=== PATIENT | male | born 2005 | race Caucasian/White ===

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

== ENCOUNTER 2023-02-01 13:35 | Emergency (ER) | payer OTHER, MEDICAID, SELFPAY ==
[2023-02-01 13:41] VITALS: BP 130/63; PULSE 86; RESP 20; TEMP 36.6; O2SAT 98
[2023-02-01 13:44] VITALS: BP 130/63; PULSE 86; RESP 20; TEMP 36.6; O2SAT 98
--- NOTE | 2023-02-01 13:50 | ED.GENADULT ---
HPI - General Adult General Chief complaint: Wound/Laceration Stated complaint: L finger laceration Time Seen by Provider: 02/01/23 13:45 History of Present Illness HPI narrative: The patient is a 17-year-old male who was cutting zip ties with a knife when the knife slipped and he cut his left index finger on the radial aspect. No sensory or motor deficits. Small laceration noted. No other lacerations. No other complaints. Immunizations up-to-date including tetanus. Related Data Home Medications Medication Instructions Recorded Confirmed No Home Medications 02/01/23 02/01/23 Allergies Allergy/AdvReac Type Severity Reaction Status Date / Time No Known Allergies Allergy Verified 02/01/23 13:44 Review of Systems Review of Systems: All systems reviewed & are unremarkable except as noted in HPI and below Constitutional: Constitutional: Denies chills, Denies excessive sweating, Denies fatigue, Denies fever(s), Denies headache(s) and Denies weakness Eyes: Eyes: Denies change in vision and Denies photophobia ENT: Denies dysphagia, Denies dizziness, Denies headache(s), Denies lip swelling, Denies nasal congestion, Denies sore throat and Denies tongue swelling Cardiovascular: Cardiovascular: Denies chest pain, Denies syncope, Denies rapid heart rate and Denies dyspnea Respiratory: Respiratory: Denies cough, Denies dyspnea and Denies wheezing Gastrointestinal: Gastrointestinal: Denies abdominal pain, Denies constipation, Denies dysphagia, Denies diarrhea, Denies nausea and Denies vomiting Genitourinary: Genitourinary: Denies hematuria, Denies dysuria, Denies urinary frequency and Denies urinary urgency Musculoskeletal: Musculoskeletal: Denies back pain, Denies myalgias, Denies arthralgias, Denies joint swelling and Denies numbness Integumentary/Breasts: Skin/Breast: Denies pruritus, Denies erythema and Denies rash Neurologic: Denies confusion, Denies dizziness, Denies syncope, Denies headache(s), Denies focal weakness, Denies numbness and Denies weakness Psychiatric: Psychiatric: Denies anxiety and Denies confusion Endocrine: Endocrine: Denies excessive sweating and Denies fatigue Hematologic/Lymphatic: Hematologic/Lymphatic: Denies easy bleeding and Denies easy bruising Allergic/Immunologic: Allergic/Immunologic: Denies lip swelling, Denies tongue swelling and Denies wheezing Exam Const: General: healthy appearing, no acute distress, alert and well nourished Nutritional Appearance: well nourished Orientation/consciousness: patient oriented x3 Limitations: no limitations HENMT: Head: normal to inspection Ears: external ears normal Face/Nose/Sinus: normal facial exam Face and sinus: normal facial exam Mouth: Yes moist mucous membranes Throat: posterior oropharynx normal Eyes: Conjunctivae: conjunctivae normal Pupils: Equal, round and reactive pupils present EOM: EOMs intact bilaterally Neck: Neck: normal visual inspection and no meningeal signs Chest: Chest palpation & inspection: normal inspection of the chest and no tenderness Resp: Effort & Inspection: normal respiratory effort and not labored Auscultation: clear to auscultation bilaterally, no crackles, no rhonchi and no wheezes Cardio: Rate: regular rate Rhythm: regular rhythm Heart sounds: no murmurs GI: Inspection: non-distended GI Palp: Yes Soft to palpation, No Tenderness to palpation present (GI), No Guarding due to palpation present (GI) and No Rebound tenderness present : General: Yes no CVA tenderness Back/Spine/Pelvis: Back: no CVA tenderness Cervical Spine: No Cervical spine tenderness Thoracic/Lumbar Spine: No thoracic spinal tenderness Skin: General skin exam: normal color Rashes: no rashes Wounds: wounds noted (4 mm stab wound at the left index finger radial aspect) Neuro: General: patient oriented x3, moves all extremities, no meningeal signs, no focal motor deficits and CN's II-XI intact bilaterally Cranial nerves: Yes
[2023-02-01 14:24] VITALS: BP 130/63; PULSE 86; RESP 20; TEMP 36.6; O2SAT 98
== END 2023-02-01 14:23 | disposition home or self-care (01) ==
PROVIDERS: Emergency Provider Emergency Medicine; PCP Family Medicine
DX: S61.211A Laceration without foreign body of left index finger without damage to nail, initial encounter (principal); W26.0XXA Contact with knife, initial encounter
CPT/HCPCS: 12001; 99282

== ENCOUNTER 2023-08-20 10:09 | Outpatient (CLI) | payer OTHER, SELFPAY ==
--- NOTE | ~2023-08-20 | XR_ITS ---
AP view of the pelvis and AP and lateral views of the right hip Clinical history: Pain Findings: No acute fracture or dislocation is seen. Osseous alignment is anatomic. Bilateral hip and SI joint spaces are preserved. Soft tissues are unremarkable. Impression: No significant abnormality is seen. Reviewed, dictated and finalized at [facility]. ULAR TECHNOLOGIST SONOGRAPHER Impression: No significant abnormality is seen.
== END 2023-08-20 10:10 | disposition home or self-care (01) ==
PROVIDERS: PCP Family Medicine; Visit Provider Family Medicine
DX: M25.551 Pain in right hip (principal)
CPT/HCPCS: 72170; 73502

== ENCOUNTER 2024-05-05 12:39 | Outpatient (CLI) | payer OTHER, MEDICAID, SELFPAY ==
--- NOTE | ~2024-05-05 | XR_ITS ---
XR ankle LT min 3V Ordering provider: Manuel Francois MD History: . anterior ankle pain x4days, no known inj, swelling, redness . Comparison: None. FINDINGS: BONES: No acute fracture or dislocation. JOINT SPACES: The ankle mortise is normal. SOFT TISSUES: Normal. IMPRESSION: No acute osseous abnormality left ankle. Reviewed, dictated and finalized at location A.
[2024-05-05 12:57] LABS: Eosinophils Absolute Auto 0.63 K/mm3 (0.02-0.50); Eosinophils Percent Auto 6.2 % (1.0-6.0); Hematocrit 42.8 % (40.0-54.0); Hemoglobin 14.8 g/dL (14.0-18.0); Immature Granulocyte Absolute 0.03 K/mm3 (0.00-0.00); Immature Granulocyte Percent A 0.3 % (0.0-0.0); Lymphocytes Absolute Auto 3.98 K/mm3 (1.10-4.50); Lymphocytes Percent Auto 39.4 % (18.0-42.0); Mean Corpuscular HGB Conc 34.6 g/dL (32-36); Mean Corpuscular Hemoglobin 28.9 pg (27.0-31.0); Mean Corpuscular Volume 83.6 fL (78.0-102.0); Mean Platelet Volume 9.7 fl (8.7-11.0); Monocytes Absolute Auto 0.75 K/mm3 (0.10-0.90); Monocytes Percent Auto 7.4 % (2.0-11.0); Neutrophils Absolute Auto 4.62 K/mm3 (1.70-7.20); Neutrophils Percent Auto 45.7 % (50.0-70.0); Platelet Count Result 304 K/mm3 (150-420); Red Blood Count 5.12 M/mm3 (4.70-6.10); Red Cell Distribution Width 12.3 % (11.6-14.4); White Blood Count 10.1 K/mm3 (4.8-10.8)
[2024-05-05 13:56] LABS: Anion Gap 6 mmol/L (4-12); Blood Urea Nitrogen 12 mg/dL (7-18); Calcium 9.4 mg/dL (8.5-10.1); Carbon Dioxide 30 mmol/L (21-32); Chloride 103 mmol/L (98-108); Estimated Glomerular Filt Rate > 60; Glucose 89 mg/dL (70-99); Osmolality Calculated 286 mOsm/kg (285-295); Potassium 3.9 mmol/L (3.5-5.1); Sodium 139 mmol/L (136-145); Uric Acid 6.3 mg/dL (3.5-7.2)
== END 2024-05-05 12:40 | disposition home or self-care (01) ==
LOC: CHSLAB 12:40
PROVIDERS: PCP Family Medicine; Visit Provider Family Medicine
DX: M25.572 Pain in left ankle and joints of left foot (principal)
CPT/HCPCS: 36415; 73610; 80048; 84550; 85025

== ENCOUNTER 2025-01-14 12:31 | Emergency (ER) | payer OTHER, SELFPAY ==
--- NOTE | ~2025-01-14 | CT_ITS ---
EXAMINATION: CT brain wo con DATE: 01/14/2025 12:56 INDICATION: Head injury with right-sided headache, nausea, dizziness and blurred vision TECHNIQUE: Computed tomography (CT) of the head was performed without intravenous contrast. Sagittal and coronal reconstructions were performed. Automated exposure control and iterative reconstruction t echnique were employed. The dose-length product was 605.33 mGy-cm. COMPARISON: None FINDINGS: No fracture. No acute intracranial hemorrhage, acute infarction or abnormal extra axial fluid collect ion. Ventricles are normal and symmetric. No mass/mass effect. There are mucous retention cysts in th e bilateral maxillary sinuses. The orbits and mastoid air cells are normal. IMPRESSION: 1. Normal brain. No fracture or acute intracranial process. Reviewed, dictated and finalized at location A.
[2025-01-14 12:32] VITALS: BP 124/78; PULSE 91; RESP 16; TEMP 37.4
--- OUTSIDE RECORDS SUMMARY | 2025-01-14 12:33 | XMS_ITS | Clinical Summary ---
Author Organization [email or web address] Address [address] [place] [address] Care Team Providers Care Woolen Tester Name Role Phone Manuel Francois MD Primary Care Provider [phone] Source Comments [email or web address],non-owned Affiliates and Associated Physician Practices is amultiple site organization consisting of ambulatory clinics and hospital sitesin [place], [place], [place] and [place]. This disclosure is being madepursuant to the Care Everywhere program and may not contain all information available regarding this patient. Last updated 18.[email or web address] Allergies No known active allergies Medications * Be aware that medications may not be up to date on this document. Alwaysverify current medications with the patient. 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 Gender Identity Not on file Sexual Orientation Not on file Last Filed Vital Signs Vital Sign Reading Time Taken Comments Blood Pressure - - Pulse - - Temperature - - Respiratory Rate - - Oxygen Saturation - - Inhaled Oxygen Concentration - - Weight 81.5 kg (179 lb 10.8 oz) 12/27/2018 9:48 AM CDT Height 185.4 cm (6' 1 ) 12/27/2018 9:48 AM CDT Body Mass Index 23.71 12/27/2018 9:48 AM CDT Plan of Treatment Health Maintenance Due Date Last Done Comments HIV SCREENING 12/28/2018 HPV VACCINE (1 - Male 3-dose series) 12/28/2018 MENINGOCOCCAL (Group B) VACC INE SHARED DECISION-MAKING (1 of 2 - Standard) 2019 HEPATITIS C SCREENING 12/24/2021 DTAP/TDAP/TD VACCINES (1 - Tdap) 12/28/2022 HEPATITIS B VACCINE (1 of 3 - 19+ 3-dose series) 12/28/2022 COVID-19 VACCINE (1 - 2023-2 5 season) 2024 DEPRESSION SCREENING 09/21/2024 INFLUENZA VACCINE (Season Ended) 2025 ZOSTER VACCINE (1 of 2) 12/28/2053 HIB VACCINE Aged Out No longer eligi ble based on patient's age to complete this topic MENINGOCOCCAL GROUPS A/C/Y/W VACCINE Aged Out No longer eligible b ased on patient's age to complete this topic PNEUMOCOCCAL VACCINE Aged Out No long er eligible based on patient's age to complete this topic Insurance [facility] MEDICA[facility] - OUT OF STATE Care Teams Woolen Tester Relationship Specialty Start Date End Date Manuel Francois MD [address] [place] [address] PCP - General Family Medicine 12/27/18
--- OUTSIDE RECORDS SUMMARY | 2025-01-14 12:33 | XMS_ITS | Clinical Summary ---
Author Organization [facility] [address] [facility] lto Address [address] [place] [address] Care Team Providers Care Lead Fabricator Name Role Phone Manuel Francois MD Primary Care Provide r Allergies No known active allergies Medications No known medications Active Problems No known active problems Social History Tobacco Use Types Packs/Day Years Used Date Smoking Tobacco: Never Tobacco Cessation:Counseling Given: Not Answered Personal Safety Answer Date Recorded Getting School Help Needed Not on file 12/05 Sex and Gender Information Value Date Recorded Sex Assigned at Not on file Legal Sex Male 10:35 AM CDT Gender Identity Not on file Sexual Orientation Not on file Obstetrics History Last Filed Vital Signs Vital Sign Reading Time Taken Comments Blood Pressure 128/72 06/22/2022 11:09 AM CDT Pulse 103 06/22/2022 11:09 AM CDT Temperature 36.9 C (98.5 F) 06/22/2022 11:09 AM CDT Respiratory Rate 20 06/22/2022 11:0 9 AM CDT Oxygen Saturation 97% 06/22/2022 11: 09 AM CDT Inhaled Oxygen Concentration - - Weight 112.6 kg (248 lb 3.2 oz) 022 11:09 AM CDT Height 193.7 cm (6' 4.25 ) 06/22/2022 1 1:09 AM CDT Body Mass Index 30.01 06/22/2022 11:09 AM CDT Plan of Treatment Health Maintenance Due Date Last Done Comments Depression Screening 2003 Hepatitis C Screening 2003 Meningococcal B Vaccine (1 o f 2 - Standard) 2019 Regular Well Visit/Exam 18-64 12/28/2021 Influenza Vaccine (#1) 2024 7, 07/12/2013, 07/30/2012, Additional history exists DTaP/Tdap/Td Vaccine (7 - Td or Tdap) 03/09/2025 03/09/2015, 11/23/2008, 04/24/2005, Additional history exists Hepatitis B Screening Completed 08/08/2004 , 05/02/2004, 02/29/2004 Pneumococcal vaccine <65 Completed 005, 08/08/2004, 05/02/2004, Additional history exists Varicella Vaccines Completed 11/23/2008, 01/09/2005 HPV Vaccines Completed 04/08/2017, 03/22, 03/09/2015 Meningococcal Vaccine Completed 03/09/2020, 015 Insurance [employer] Address: [facility] [address] [place] [address] IDPA [employer] Address: [facility] [address] [place] [address] [place]PA Care Teams Lead Fabricator Relationship Specialty Start Date End Date Manuel Francois MD [address] [place], [place] [id number] PCP - General Family Medicine 06/22/22
--- OUTSIDE RECORDS SUMMARY | 2025-01-14 12:33 | XMS_ITS | Referral Summary ---
Author Organization [facility] [address] [facility] lto Address [address] [facility] [place] [address] Care Team Providers Care Certified Technician Name Role Phone Manuel Francois MD Primary [...] 06/22/2022 11:09 AM CDT Plan of Treatment Not on file Insurance [employer] [facility] [facility] [employer] Address: [facility] [address] [place] [address] IDLA [employer] [employer] Address: [facility] [address] [place] [address] [place]LA Care Teams Certified Technician Relationship Specialty Start Date End Date Manuel Francois MD [address] [place] [address] PCP - General Family Medicine 06/22/22
--- NOTE | 2025-01-14 12:48 | ED_ITS ---
HPI - Head Injury General Chief complaint: Head Injury Stated complaint: hit head on forklift Time Seen by Provider: 01/14/25 12:38 Source: patient and family Mode of arrival: ambulatory Limitations: no limitations History of Present Illness HPI Narrative: this is a 19-year-old male that hit his head on the beam of a forklift earlier this morning causing headache and some nausea currently no nausea or vomiting t here was no loss of consciousness no blurry vision no neurological deficits. Patient did take some Tylenol prior to arrival. Complaint: head injury Onset (ago): hour(s) Mechanism of Injury: work related injury Place: work Loss of Consciousness: no Location of injury: parietal Severity: moderate Severity scale (1-10): 4 Related Data Home Medications ?Medication ?Instructions ?Recorded ?Confirmed ?Last Taken ?Type No Home Medications 02/01/23 02/01/23 Unknown History Allergies Allergy/AdvReac Type Severity Reaction Status Date / Time No Known Allergies Allergy Verified 02/01/23 13:44 Review of Systems Review of Systems: All systems reviewed & are unremarkable except as noted in HPI and below PMFSH Past Medical History Medical History Patient denies medical problems Exam Const: General: healthy appearing and no acute distress Nutritional Appearance: well nourished Orientation/consciousness: patient oriented x3 Limitations: no limitations HENMT: Head: normal to inspection Eyes: Conjunctivae: conjunctivae normal Pupils: Equal, round and reactive pupils present EOM: EOMs intact bilaterally Direct Ophthalmoscopy: no photophobia Neck: Neck: normal visual inspection Chest: Chest palpation & inspection: normal inspection of the chest Resp: Effort & Inspection: normal respiratory effort Auscultation: clear to auscultation bilaterally Cardio: Rate: regular rate Rhythm: regular rhythm GI: GI Palp: Yes Soft to palpation Auscultation: normal bowel sounds Neuro: General: patient oriented x3, moves all extremities, no meningeal signs and no focal motor deficits Cranial nerves: Yes CN's II-XII intact bilaterally Speech: normal speech Gait exam (Neuro): Normal gait present Extrem: General: normal to inspection Course Course Emergency Course: patient took Tylenol prior to arrival pain level is under control currently no nausea vomiting, CT scan performed of the brain shows no acute intracranial abnormalities. Vital Signs Vital signs: Vital Signs Temperature 37.4 C 01/14/25 12:32 Pulse Rate 91 01/14/25 12:32 Respiratory Rate 16 01/14/25 12:32 Blood Pressure 124/78 01/14/25 12:32 Temperature 37.4 C 01/14/25 12:32 Pulse Rate 91 01/14/25 12:32 Respiratory Rate 16 01/14/25 12:32 Blood Pressure 124/78 01/14/25 12:32 Critical Care Time Critical Care Time Critical Care Time: No Discharge Plan Discharge Clinical Impression: Closed head injury Qualifiers: Encounter type: initial encounter Qualified Code(s): S09.90XA - Unspecified injury of head, initial encounter Concussion Qualifiers: Encounter type: initial encounter Loss of consciousness presence/duration: without LOC Qualified Code(s): S06.0X0A - Concussion without loss of consciousness, initial encounter Patient Disposition: Home Condition: Stable Instructions: Antibiotic Form, Concussion (ED), Head Injury (ED) Additional Instructions: advised take Tylenol or Motrin as needed refrain from heavy activity and refrain from electronics for approximately 1 week and follow with primary if sym ptoms persist or worsen. Patient Language: Kyrgyz Prescriptions: No Action No Home Medications Follow-up/Referrals: Manuel Francois MD [Primary Care Provider] -
--- OUTSIDE RECORDS SUMMARY | 2025-01-14 13:06 | XMS_ITS | Clinical Summary ---
Author Organization [facility] [address] [facility] lto Address [address] [place] [address] Care Team Providers Care Blocking Machine Operator Second Name Role Phone Manuel Francois MD Primary [...] Meningococcal Vaccine Completed 03/09/2020, 015 Insurance [employer] Address: [facility] [address] [place] [address] IDPA [employer] Address: [facility] [address] [place] [address] [place]PA Care Teams Blocking Machine Operator Second Relationship Specialty Start Date End Date Manuel Francois MD [address] [place], [place] [id number] PCP - General Family Medicine 06/22/22
--- OUTSIDE RECORDS SUMMARY | 2025-01-14 13:06 | XMS_ITS | Referral Summary ---
Author Organization [facility] [address] [facility] lto Address [address] [place] [address] Care Team Providers Care Auger Supervisor Name Role Phone Manuel Francois MD Primary [...] of Treatment Not on file Insurance [employer] [facility] [employer] Address: [facility] [address] [place] [address] IDMI [employer] [facility] [employer] Address: [facility] [address] [place] [address] IDMI Care Teams Auger Supervisor Relationship Specialty Start Date End Date Manuel Francois MD [address] [place] [address] PCP - General Family Medicine 06/22/22
--- OUTSIDE RECORDS SUMMARY | 2025-01-14 13:06 | XMS_ITS | Clinical Summary ---
Author Organization [facility] Address [address] [place] [address] Care Team Providers Care Scientist Propagator Name Role Phone Manuel Francois MD Primary Care Provider [phone] [facility],non-owned Affiliates and Associated Physician Practices is amultiple site organization consisting of ambulatory clinics and hospital sitesin [place], [place], [place] and [place]. This disclosure is being madepursuant to the Care Everywhere program and may not contain all information available regarding this patient. Last updated 18.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
== END 2025-01-14 13:24 | disposition home or self-care (01) ==
LOC: CHSED 13:04
PROVIDERS: Emergency Provider Emergency Medicine; PCP Family Medicine
DX: S06.0X0A Concussion without loss of consciousness, initial encounter (principal); W22.8XXA Striking against or struck by other objects, initial encounter; Y99.0 Civilian activity done for income or pay
CPT/HCPCS: 70450; 99284

== ENCOUNTER 2025-07-25 15:27 | Outpatient (CLI) | payer MEDICAID, OTHER, SELFPAY ==
[2025-07-25 15:56] LABS: Add Urine Microscopic? YES; Appearance Urine Clear (Clear); Glucose Urine UA Negative (Negative); Hematocrit 44.1 % (40.0-54.0); Hemoglobin 14.8 g/dL (14.0-18.0); Immature Granulocyte Percent A 0.3 % (0.0-0.0); Leukocyte Esterase Ur Negative (Negative); Lymphocytes Absolute Auto 4.20 K/mm3 (1.10-4.50); Mean Corpuscular HGB Conc 33.6 g/dL (32-36); Mean Corpuscular Hemoglobin 28.6 pg (27.0-31.0); Mean Corpuscular Volume 85.3 fL (78.0-102.0); Nitrate Urine Negative (Negative); Nucleated Red Blood Cells Absolute Auto 0.00 K/mm3 (0.00-0.00); Nucleated Red Blood Cells Perc 0.0 % (0-0.0); Platelet Count Result 323 K/mm3 (150-420); Red Blood Count 5.17 M/mm3 (4.70-6.10); Specific Grav Ur 1.025 (1.010-1.020); White Blood Count 10.3 K/mm3 (4.8-10.8)
[2025-07-25 16:36] LABS: Alanine Aminotransferase 24 U/L (6-50); Albumin Level 5.0 g/dL (3.5-5.1); Alkaline Phosphatase 86 U/L (38-126); Amylase 90 U/L (30-110); Anion Gap 8 mmol/L (4-12); Aspartate Amino Transferase 25 U/L (17-59); Bilirubin,Total 1.5 mg/dL (0.2-1.3); Blood Urea Nitrogen 12 mg/dL (9-20); Calcium 9.9 mg/dL (8.4-10.2); Carbon Dioxide 27 mmol/L (22-30); Chloride 106 mmol/L (98-107); Estimated Glomerular Filt Rate > 60; Glucose 90 mg/dL (65-110); Lipase 67 U/L (23-300); Osmolality Calculated 291 mOsm/kg (285-295); Potassium 4.1 mmol/L (3.4-5.0); Sodium 141 mmol/L (137-145); Total Protein 7.6 g/dL (6.3-8.2)
--- OUTSIDE RECORDS SUMMARY | 2025-07-25 16:41 | XMS_ITS | Clinical Summary ---
Author Organization [facility] [address] [facility] lto Address [address] [place] [address] Care Team Providers Care Retail Loss Prevention Investigator Name Role Phone Manuel Francois MD Primary [...] 11:09 AM CDT Height 193.7 cm (6' 4.25) 06/22/2022 1 1:09 AM CDT Body Mass Index 30.01 06/22/2022 11:09 AM CDT Plan of Treatment Not on file Insurance [employer] Address: [facility] [address] [place] [address] IDHI [employer] Address: [facility] [id number] [place] [address] [employer] Care Teams Retail Loss Prevention Investigator Relationship Specialty Start Date End Date Manuel Francois MD [address] [place] [address] PCP - General Family Medicine 06/22/22
--- OUTSIDE RECORDS SUMMARY | 2025-07-25 16:41 | XMS_ITS | Clinical Summary ---
Author Organization [facility] Address [address] [place] [address] Care Team Providers Care Off Track Betting Manager Name Role Phone Manuel Francois MD Primary Care Provider Source Comments [facility],non-owned Affiliates and Associated Physician Practices is amultiple site organization consisting of ambulatory clinics and hospital sitesin [place], [place], [place] and [place]. This disclosure is being madepursuant to the Care Everywhere program and may not contain all information available regarding this patient. 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 Gender Identity Not on file Sexual Orientation Not on file Last Filed Vital Signs Vital Sign Reading Time Taken Comments Blood Pressure - - Pulse - - Temperature - - Respiratory Rate - - Oxygen Saturation - - Inhaled Oxygen Concentration - - Weight 81.5 kg (179 lb 10.8 oz) 12/27/2018 9:48 AM CDT Height 185.4 cm (6' 1) 12/27/2018 9:48 AM CDT Body Mass Index [...] of 3 - 19+ 3-dose series) 12/28/2022 DEPRESSION SCREENING 09/21/2024 COVID-19 VACCINE (1 - 2023-2 5 season) 2025 INFLUENZA VACCINE (#1) 2025 ZOSTER VACCINE (1 of 2) 12/28/2053 HIB VACCINE Aged Out No longer eligi ble based on patient's age to complete this topic MENINGOCOCCAL GROUPS A/C/Y/W VACCINE Aged Out No longer eligible b ased on patient's age to complete this topic PNEUMOCOCCAL VACCINE Aged Out No long er eligible based on patient's age to complete this topic Insurance [facility] MEDICAID - OUT OF STATE Care Teams Off Track Betting Manager Relationship Specialty Start Date End Date Manuel Francois MD [address] [place] [address] PCP - General Family Medicine 12/27/18
== END 2025-07-25 15:28 | disposition home or self-care (01) ==
LOC: CHSLAB 15:32
PROVIDERS: PCP Family Medicine; Visit Provider Family Medicine
DX: R10.31 Right lower quadrant pain (principal)
CPT/HCPCS: 36415; 80053; 81001; 82150; 82248; 83690; 85025